=== PATIENT | female | born 1975 | race Hispanic/Latino ===

== ENCOUNTER 2025-03-16 16:44 | Emergency (ER) | payer SELFPAY ==
[~2025-03-16] VITALS: Ht 160 cm; Wt 77.1 kg
[2025-03-16] MEDS: ASPIRIN 325 MG TAB PO ONE (17:16)
[2025-03-16] MEDS ORDERED: IOPAMIDOL 370 MG/ML 100 ML INFUS..BTL INJ ONE (17:51)
[2025-03-16 18:42] VITALS: PULSE 70; RESP 16; TEMP 98.8
[2025-03-16 19:58] VITALS: BP 108/77; RESP 18; O2SAT 97
== END 2025-03-16 19:50 | disposition home or self-care (01) ==
LOC: FSED 16:52
DX: R07.89 Other chest pain (principal); M54.50 Low back pain, unspecified; N63.20 Unspecified lump in the left breast, unspecified quadrant; N63.10 Unspecified lump in the right breast, unspecified quadrant
CPT/HCPCS: 71275; 80048; 80076; 81003; 84484; 85025; 85379; 93005; 99284; Q9967